=== PATIENT | female | born 1985 | race Caucasian/White ===

== ENCOUNTER 2018-01-19 10:41 | Emergency (ER) | payer OTHER ==
[~2018-01-19] VITALS: Ht 177.8 cm; Wt 97.5 kg
[~2018-01-19 10:41] MED LIST: HYDR-79 PO; IBUP200T44 PO
--- NOTE | 2018-01-19 11:17 | PHYS DOC ---
Past History Past Medical History: Asthma, Other Past Surgical History: Tonsillectomy, Other Alcohol Use: Occasionally Drug Use: None Adult General Chief Complaint Chief Complaint: [facility]ESS [facility] HPI 32-year-old female patient states she had a cyst in right labia majora for the last 4 days that gradually getting larger and more tender without fever and chills, nausea and vomiting, vaginal bleeding or discharge. Patient states she had episodes of the same problem intermittently for years and usually the cyst resolved spontaneously but this time it last for longer time. Patient states she had abscess drainage of left labia majora 9 years ago with the same problem. Review of Systems Review of Systems Constitutional: Denies fever or chills [] Eyes: Denies change in visual acuity, redness, or eye pain [] HENT: Denies nasal congestion or sore throat [] Respiratory: Denies cough or shortness of breath [] Cardiovascular: No additional information not addressed in HPI [] GI: Denies abdominal pain, nausea, vomiting, bloody stools or diarrhea [] : Denies dysuria or hematuria [] Musculoskeletal: Denies back pain or joint pain [] Integument: Denies rash , reports abscess Neurologic: Denies headache, focal weakness or sensory changes [] Endocrine: Denies polyuria or polydipsia [] All other systems were reviewed and found to be within normal limits, except as documented in this note. Allergies Allergies Allergies Coded Allergies Type Severity Reaction Last Updated Verified acetaminophen Allergy Unknown 09/19/16 Yes naproxen Allergy Unknown 09/19/16 Yes Physical Exam Physical Exam Constitutional: Well developed, well nourished, mild distress, non-toxic appearance. [] HENT: Normocephalic, atraumatic Eyes: PERRLA, EOMI, conjunctiva normal, no discharge. [] Neck: Normal range of motion, no tenderness, supple, no stridor. [] Cardiovascular:Heart rate regular rhythm, no murmur [] Lungs & Thorax: Bilateral breath sounds clear to auscultation [] Abdomen: Bowel sounds normal, soft, no tenderness, no masses, no pulsatile masses. [ External genital exam with present of drum builder showed a 2 x 2 centimeters tender mass in proximal labia majora with central fluctuation] Skin: Warm, dry, no erythema, no rash. [] Neurologic: Alert and oriented X 3, normal motor function, normal sensory function, no focal deficits noted. [] Psychologic: Affect normal, judgement normal, mood normal. [] Current Patient Data Vital Signs Vital Signs Date Time Temp Pulse Resp B/P (MAP) Pulse Ox O2 Delivery O2 Flow Rate FiO2 01/19/18 10:52 98.2 109 18 95 Room Air EKG EKG [] Radiology/Procedures Radiology/Procedures [] Course & Med Decision Making Course & Med Decision Making discharge: I've spoken with the patient and/or caregivers. I've explained the patient's condition, diagnosis and treatment plan based on information available to me at this time. I've answered the patient's and/or caregivers questions and addressed any concerns. The patient and/or caregivers have a good understanding the patient's diagnosis, condition and treatment plan as can be expected at this point. Vital signs have been stabilized. The patient's condition is stable for discharge from the emergency department. The patient will pursue further outpatient evaluation with her primary care provider or other designated consulting physician as outlined in the discharge instructions. Patient and/or caregivers are agreeable to this plan of care and follow-up instructions have been explained in detail. The patient and/or caregivers have received these instructions in written format and expressed understanding of these discharge instructions. The patient and her caregivers are aware that if any significant change in condition or worsening of symptoms should prompt him to immediately return to this of the closest emergency department. If an emergent department is not readily available I would encourage him to call 911. Jose Disclaimer Dragon Disclaimer This electronic medical record was generated, in whole or in part, using a voice recognition dictation system. Incision and Drainage Indication: Bartholin gland abscess] Procedure: The patient was positioned appropriately and the medial side of the labia majora was anesthetized with 1% lidocaine. An incision was then made over the [mucosal side of labia majora:] and [small amount of pus material was expressed. Loculations were [removed with irrigation and QT]. The drainage cavity was then [packed with iodoform:]. The patients tetanus status [TETANUS STATUS:]. The patient tolerated the procedure well]. Complications: [none Departure Departure: Impression: Primary Impression: Bartholin's gland abscess Disposition: HOME, SELF-CARE (at 1239) Condition: IMPROVED Referrals: AUGUSTINA LAMAR (PCP) Patient Instructions: Bartholin's Cyst or Abscess Additional Instructions: Follow-up with your MAIL RIDER in 2 or 3 days Follow-up with your primary care physician in 3-5 days Return to ER if not getting better Scripts Oxycodone Hcl (OXYCODONE HCL) 5 Mg Capsule 1 CAP PO TID, #9 CAP Prov: SUSAN MIGUEL MD 01/19/18 Cephalexin (KEFLEX) 500 Mg Capsule 1 CAP PO TID, #21 CAP Prov: SUSAN MIGUEL MD 01/19/18 SUSAN MIGUEL MD Jan 19, 2018 11:17
[2018-01-19] MEDS ORDERED: HYDROcodone/APAP 5/325MG 1 TAB TABLET PO ONE (11:30)
[2018-01-19] MEDS ORDERED: LIDOCAINE 1% Multi-Dose 20 ML VIAL. IJ ONE (11:30)
[2018-01-19] MEDS ORDERED: OXYC5CAP PO (12:41)
[2018-01-19] MEDS ORDERED: CEPH-264 PO (12:41)
[2018-01-19 12:49] VITALS: BP 118/83
== END 2018-01-19 12:49 | disposition home or self-care (01) ==
LOC: ER 10:41
DX: N75.1 Abscess of Bartholin's gland (principal); J45.909 Unspecified asthma, uncomplicated; Z88.6 Allergy status to analgesic agent
CPT/HCPCS: 56420; 99284